=== PATIENT | female | born 1935 | race Caucasian/White ===

== ENCOUNTER 2016-11-03 09:57 | Emergency (ER) | payer OTHER ==
[~2016-11-03] VITALS: Ht 165.1 cm; Wt 82.7 kg
[~2016-11-03 09:57] MED LIST: AMOXICILLIN500 MG PO; Catapres-TTS 1 TD; Cipro PO; DILTIAZEM 24HR240 MG PO; DUONEB 2.5-0.5 M3 ML IH; ENDOCET 5-3251 EACH PO; Ecotrin PO; FLONASE16 G1 BOTH NARES; Flagyl PO; Flonase BOTH NARES; K-DUR20 MEQ PO; LEVOTHYROXINE50 MCG PO; LOMOTIL TABLET1 EACH PO; Levothroid,Synthroid PO; METOPROLOL TAR100 MG PO; MOTRIN600 MG PO; NAPROXEN500 MG PO; NORCO 5/3251 TABLET PO; Norvasc PO; PREDNISONE10 MG PO; PREDNISONE50 MG PO; PRILOSEC20 MG PO; PROAIR HFA8.5 GM IH; Phenergan PO; PriLOSEC PO; TOPROL XL100 MG PO; Tylenol Regular Stre PO; ULTRACET1 TABLET PO; ZESTORETIC 20-1 EAC1 NG; Zestril,Prinivil PO; Zocor PO
[2016-11-03 10:46] LABS: MCHC 34.3 G/DL (30.0-36.0); MCV 84.5 FL (83-99); MEAN PLAT.VOLUME 9.3 uM^3 (9.5-12.4); PLATELET COUNT 181 K/uL (156-360); RBC DIS.WIDTH-CV 13.6 % (11.8-14.6); RBC DIS.WIDTH-SD 42.4 % (39-53); RED BLOOD COUNT 4.38 M/uL (3.80-5.20); WHITE BLOOD COUNT 7.2 K/uL (4.1-10.2)
[2016-11-03 10:56] LABS: CHLORIDE 95 mEq/L (99-109); POTASSIUM 3.6 mEq/L (3.7-5.4); SODIUM 133 mEq/L (136-147)
[2016-11-03 10:57] LABS: GLUCOSE 91 mg/dL (70-99)
[2016-11-03 10:58] LABS: ANION GAP 9 MEQ/L (2-14)
[2016-11-03 11:00] LABS: GFR ESTIMATE (CALCULATED) > 59 mL/min/
[2016-11-03 11:01] LABS: UREA NITROGEN (BUN) 15 mg/dL (9-23)
[2016-11-03 12:13] LABS: TROP-I INTERPRETATION NEGATIVE; TROPONIN-I < 0.01 ng/mL (0.0-0.30)
[2016-11-03] MEDS ORDERED: ZITHROMAX Z-PA250 MG PO (13:00)
[2016-11-03] MEDS ORDERED: PREDNISONE50 MG PO (13:00)
[2016-11-03 13:09] VITALS: BP 168/86
== END 2016-11-03 13:12 | disposition home or self-care (01) ==
LOC: EME 09:57
DX: J45.909 Unspecified asthma, uncomplicated (principal); R06.00 Dyspnea, unspecified; R05 Cough; I10 Essential (primary) hypertension; Z87.891 Personal history of nicotine dependence
CPT/HCPCS: 71020; 80048; 83880; 84484; 85027; 93005; 94640; 99281; 99284; J7512

== ENCOUNTER 2017-02-26 07:39 | Observation (INO) | payer OTHER ==
[~2017-02-26] VITALS: Ht 160 cm; Wt 76.3 kg
[~2017-02-26 07:39] MED LIST changes: -ZESTORETIC 20-1 EAC1 NG; +ZESTORETIC 20-1 EAC1 PO; +ZITHROMAX Z-PA250 MG PO
[2017-02-26 08:51] LABS: HEMATOCRIT 37.5 % (36.0-46.0); MCH 29.3 PG (29.0-34.0); MCHC 34.7 G/DL (30.0-36.0); MCV 84.5 FL (83-99); MEAN PLAT.VOLUME 9.3 uM^3 (9.5-12.4); PLATELET COUNT 166 K/uL (156-360); RBC DIS.WIDTH-CV 13.9 % (11.8-14.6); RBC DIS.WIDTH-SD 43.2 % (39-53); RED BLOOD COUNT 4.44 M/uL (3.80-5.20); WHITE BLOOD COUNT 9.2 K/uL (4.1-10.2)
[2017-02-26 09:03] LABS: CHLORIDE 93 mEq/L (99-109); POTASSIUM 4.1 mEq/L (3.7-5.4); SODIUM 128 mEq/L (136-147)
[2017-02-26 09:05] LABS: GLUCOSE 105 mg/dL (70-99)
[2017-02-26 09:06] LABS: ANION GAP 9 MEQ/L (2-14)
[2017-02-26 09:07] LABS: TOTAL BILIRUBIN 0.7 mg/dL (0.0-1.0)
[2017-02-26 09:08] LABS: ALKALINE PHOSPHATASE 61 IU/L (3-129)
[2017-02-26 09:09] LABS: GFR ESTIMATE (CALCULATED) > 59 mL/min/
[2017-02-26 09:10] LABS: UREA NITROGEN (BUN) 17 mg/dL (9-23)
[2017-02-26 09:12] LABS: CREATINE KINASE 65 IU/L (1-294); TOTAL CK 65 IU/L (1-294)
[2017-02-26 09:17] LABS: CK-MB 1.8 ng/mL (0.0-4.9)
[2017-02-26 11:35] VITALS: BP 195/84
[2017-02-26] MEDS ORDERED: ZESTRIL10 MG PO (11:41)
[2017-02-26] MEDS ORDERED: XALATAN2.5 ML LEFT EYE (11:45)
[2017-02-26] MEDS ORDERED: CELEBREX200 MG PO (11:45)
[2017-02-26] MEDS ORDERED: ZOCOR80 MG PO (11:46)
[2017-02-26] MEDS ORDERED: CATAPRES-TTS 11 EACH TD (11:46)
[2017-02-26 15:53] VITALS: BP 122/60
[2017-02-26 16:27] LABS: TROP-I INTERPRETATION NEGATIVE; TROPONIN-I 0.01 ng/mL (0.0-0.30)
[2017-02-26 19:14] VITALS: BP 149/66
[2017-02-26 21:31] LABS: TROP-I INTERPRETATION NEGATIVE; TROPONIN-I 0.01 ng/mL (0.0-0.30)
[2017-02-27 00:12] VITALS: BP 159/79
[2017-02-27 03:39] VITALS: BP 150/92
[2017-02-27 06:03] LABS: ANION GAP 7 MEQ/L (2-14); CHLORIDE 96 MEQ/L (99-109); GFR ESTIMATE (CALCULATED) > 59 mL/min/; GLUCOSE 131 mg/dL (70-99); POTASSIUM 4.4 MEQ/L (3.7-5.4); SAMPLE HEMOLYSIS CHECK 0; SAMPLE ICTERIC CHECK 0; SAMPLE LIPEMIA CHECK 0; SODIUM 129 MEQ/L (136-147); UREA NITROGEN (BUN) 25 mg/dL (9-23)
[2017-02-27 07:30] VITALS: BP 142/85
[2017-02-27] MEDS ORDERED: ELIQUIS5 MG PO (10:34)
[2017-02-27 11:55] VITALS: BP 134/88
== END 2017-02-27 14:55 | disposition home or self-care (01) ==
LOC: EME 07:39 → EDOF 09:53 → 5WEST 09:53 → CANRESERV 09:54 → ENRESERV 09:54 → CANRESERV 09:56 → ENRESERV 10:51 → 5WEST 11:32
PROVIDERS: Emergency Medicine; Family Medicine
DX: I48.91 Unspecified atrial fibrillation (principal); I10 Essential (primary) hypertension; E03.9 Hypothyroidism, unspecified; E78.5 Hyperlipidemia, unspecified; M19.90 Unspecified osteoarthritis, unspecified site; J44.9 Chronic obstructive pulmonary disease, unspecified; E87.1 Hypo-osmolality and hyponatremia; F41.1 Generalized anxiety disorder; Z88.8 Allergy status to other drugs, medicaments and biological substances
CPT/HCPCS: 71010; 80048; 80053; 82550; 82553; 83735; 84443; 84484; 85027; 85027 GA; 93005; 99281; 99285; G0378; J7030; J7040

== ENCOUNTER 2017-05-09 11:59 | Day surgery (SDC) | payer OTHER ==
[~2017-05-09] VITALS: Ht 154.9 cm; Wt 81.7 kg
[~2017-05-09 11:59] MED LIST changes: +CARDIZEM CD,CA240 MG PO; +CATAPRES-TTS 11 EACH TD; +CELEBREX200 MG PO; +ELIQUIS5 MG PO; +LISINOPRIL10 MG PO; +OMEPRAZOLE20 M2 PO; +SIMVASTATIN80 MG PO; +SINGULAIR10 MG PO; +SODIUM CHLORIDE1 G1 PO; +VENTOLIN HFA18 GM IH; +XALATAN2.5 ML LEFT EYE; +ZESTRIL10 MG PO; +ZOCOR80 MG PO
[2017-05-09 14:06] LABS: HEMATOCRIT 35.2 % (36.0-46.0); MCH 30.1 PG (29.0-34.0); MCHC 34.9 G/DL (30.0-36.0); MCV 86.1 FL (83-99); MEAN PLAT.VOLUME 9.9 uM^3 (9.5-12.4); PLATELET COUNT 182 K/uL (156-360); RBC DIS.WIDTH-CV 14.4 % (11.8-14.6); RBC DIS.WIDTH-SD 45.5 % (39-53); RED BLOOD COUNT 4.09 M/uL (3.80-5.20); WHITE BLOOD COUNT 7.5 K/uL (4.1-10.2)
[2017-05-09 14:08] LABS: ANION GAP 7 MEQ/L (2-14); CHLORIDE 96 MEQ/L (99-109); POTASSIUM 3.5 MEQ/L (3.7-5.4); SAMPLE HEMOLYSIS CHECK 0; SAMPLE ICTERIC CHECK 0; SAMPLE LIPEMIA CHECK 0; SODIUM 132 MEQ/L (136-147)
[2017-05-09 14:14] LABS: GFR ESTIMATE (CALCULATED) > 59 mL/min/; GLUCOSE 91 mg/dL (70-99); UREA NITROGEN (BUN) 14 mg/dL (9-23)
== END 2017-05-09 20:30 | disposition home or self-care (01) ==
LOC: CATH 11:59
PROVIDERS: Internal Medicine Cardiovascular Disease
DX: I25.10 Atherosclerotic heart disease of native coronary artery without angina pectoris (principal); I25.82 Chronic total occlusion of coronary artery; I48.0 Paroxysmal atrial fibrillation; Z79.01 Long term (current) use of anticoagulants; J44.9 Chronic obstructive pulmonary disease, unspecified; I10 Essential (primary) hypertension; E03.9 Hypothyroidism, unspecified; E78.5 Hyperlipidemia, unspecified
CPT/HCPCS: 80048; 85027; 85347; C1769; C1887; J0461; J1644; J2250; J2405; J3010

== ENCOUNTER 2017-08-14 12:44 | Emergency (ER) | payer OTHER ==
[~2017-08-14] VITALS: Ht 165.1 cm; Wt 84.6 kg
[2017-08-14 13:41] LABS: HEMATOCRIT 38.1 % (36.0-46.0); MCH 29.3 PG (29.0-34.0); MCHC 34.1 G/DL (30.0-36.0); MCV 85.8 FL (83-99); PLATELET COUNT 166 K/uL (156-360); RBC DIS.WIDTH-CV 13.9 % (11.8-14.6); RBC DIS.WIDTH-SD 43.4 % (39-53); RED BLOOD COUNT 4.44 M/uL (3.80-5.20); WHITE BLOOD COUNT 7.5 K/uL (4.1-10.2)
[2017-08-14 13:50] LABS: CHLORIDE 104 mEq/L (99-109); POTASSIUM 4.8 mEq/L (3.7-5.4); SODIUM 137 mEq/L (136-147)
[2017-08-14 13:52] LABS: GLUCOSE 96 mg/dL (70-99)
[2017-08-14 13:56] LABS: CREATININE 0.8 mg/dL (0.6-1.3); GFR ESTIMATE (CALCULATED) > 59 mL/min/; UREA NITROGEN (BUN) 17 mg/dL (9-23)
[2017-08-14 14:05] LABS: TROP-I INTERPRETATION NEGATIVE; TROPONIN-I < 0.01 ng/mL (0.0-0.30)
[2017-08-14] MEDS ORDERED: PREDNISONE20 MG PO ×2 (16:02→16:07)
[2017-08-14] MEDS ORDERED: ZITHROMAX250 MG PO (16:02)
[2017-08-14 16:48] VITALS: BP 178/81
== END 2017-08-14 16:49 | disposition home or self-care (01) ==
LOC: EME 12:44
DX: J44.1 Chronic obstructive pulmonary disease with (acute) exacerbation (principal); I10 Essential (primary) hypertension; E03.9 Hypothyroidism, unspecified; Z87.891 Personal history of nicotine dependence
CPT/HCPCS: 71046; 80048; 84484; 85027; 93005; 94640; J7512